=== PATIENT | male | born 2005 | race Caucasian/White ===

== ENCOUNTER 2024-06-09 00:03 | Emergency (ER) | payer SELFPAY ==
[~2024-06-09] VITALS: Ht 165.1 cm; Wt 60.3 kg
[2024-06-09 00:15] VITALS: BP 109/55; PULSE 64; RESP 18; TEMP 98.2; O2SAT 96
[2024-06-09 00:46] VITALS: O2SAT 99
--- NOTE | 2024-06-09 00:46 | NUR ---
18YO M BIB SELF C.O LACERATION TO LEFT WRIST WHILE WORKING. PT STATES GLASS BROKE AT WORK AND CUT HIS WRIST. BLEEDING CONTROLLED AT THIS TIME. DENIES ANY OTHER COMPLAINTS. CALL LIGHT WITHIN REACH. SAFETY MEASURES IN PLACE. NKDA NO MED HX
--- NOTE | 2024-06-09 01:00 | NUR ---
LAC TO R MEDIAL WRIST IRRIGATED
--- NOTE | 2024-06-09 01:30 | NUR ---
steri-strip applied to wound.
--- NOTE | 2024-06-09 02:38 | NUR ---
Patient discharged with v/s stable. Written and verbal after care instructions given and explained. Patient verbalized understanding. Ambulatory with steady gait. All questions addressed prior to discharge. Advised to follow up with PMD.
== END 2024-06-09 02:38 | disposition home or self-care (01) ==
LOC: MED 00:19
DX: S51.811A Laceration without foreign body of right forearm, initial encounter (principal); W25.XXXA Contact with sharp glass, initial encounter; Y93.89 Activity, other specified; Y92.89 Other specified places as the place of occurrence of the external cause; Y99.8 Other external cause status
CPT/HCPCS: 12001; 90471; 90715; 99283